=== PATIENT | male | born 1990 | race Caucasian/White ===

== ENCOUNTER 2017-05-09 11:02 | Inpatient (IN) ==
[2017-05-09] MEDS ORDERED: VANCOMYCIN 1 GM/NS 1 GM/250 ML IVPB IV ONE (11:32)
[2017-05-09] MEDS ORDERED: ZOSYN 3.375 GM in NS 50 ML IV ONE (11:33)
[2017-05-09] MEDS ORDERED: TORADOL IV ONE (11:34)
[2017-05-09] MEDS ORDERED: OFIRMEV 1000 MG/ISOTONIC SOLN 1,000 MG/100 ML BOTTLE IV ONE (11:36)
[2017-05-09 11:49] LABS: MANUAL DIFF NEEDED? NO
[2017-05-09 12:04] LABS: BASO% 0.1 % (0.0-0.8); EOS# 0.01 X1000 (0.0-0.7); EOS% 0.1 % (0.0-10.0); HEMATOCRIT 42.6 % (42.0-52.0); HEMOGLOBIN 14.8 g/dL (14.0-18.0); IMM GRAN# 0.02 X1000 (0.0-0.04); IMM GRAN% 0.2 % (0.0-0.5); LYMPH% 11.3 % (20.5-51.1); MCH 27.8 PG (27-31); MCHC 34.7 g/dL (33-37); MCV 80.1 FL (81-99); MONO# 1.35 X1000 (0.11-0.59); MONO% 10.1 % (1.7-9.3); MPV 10.7 FL (7.4-10.4); NEUT% 78.2 % (42.2-75.2); PLT 312 X1000 (130-400); RBC 5.32 XMIL (4.7-6.1)
[2017-05-09 12:18] LABS: AGAP 16; ALBUMIN 4.7 g/dL (3.5-5.0); ALKALINE PHOSPHATASE 122 U/L (32-122); BUN 17 mg/dL (8-22); CALCIUM 10.2 mg/dL (8.8-10.2); CHLORIDE 92 mmol/L (98-107); COSMO 270; GOT 46 U/L (10-34); GPT 129 U/L (10-44); SODIUM 134 mmol/L (136-145); TCO2 27 mmol/L (25-35)
--- NOTE | 2017-05-09 12:53 | Diag Imaging Result Doc PS360 ---
CT THORAX/NECK - 05/09/2017 INDICATION: chest/neck abscess TECHNIQUE: A CT dose reduction protocol was used. COMPARISON: None FINDINGS: NECK: There is severe soft tissue enlargement of the left sternomastoid muscle extending into the pectoralis major muscle inferiorly. There is also loss of the normal fat planes surrounding these muscles. There is nonspecific edema in the supraclavicular fossa on the left. No significant retrosternal collections. No mass or adenopathy in the neck. The great vessels of the neck are patent. The sinuses mastoids and middle ears are clear. Bony structures are intact and normally mineralized. CHEST: There is significant soft tissue enlargement of the inferior sternebrae mastoid on the left as well as the pectoralis major muscle. This in turn leads to widespread subcutaneous edema surrounding this affected area which crosses the midline somewhat but mainly stays on the left. No adenopathy. No mediastinal mass or fluid collection. There is splenomegaly. The spleen measures 12.5 x 6.6 cm. Otherwise upper abdominal images are unremarkable. The lungs and airways are clear. Bony structures are intact. IMPRESSION: 1. Extensive inflammatory process is mostly superficial, involving the inferior clinically to mastoid muscle on the left and the pectoralis major muscle with overlying cellulitis. Compatible with cellulitis and myositis. No drainable fluid collections. No soft tissue gas to definitely suggest necrotizing fasciitis. 2. Borderline splenomegaly. Electronically signed by Sancho Palacios 05/09/2017 12:51 PM
[2017-05-09] MEDS ORDERED: BENADRYL ONE (13:05)
[2017-05-09] MEDS ORDERED: DECADRON ONE (13:05)
[2017-05-09] MEDS ORDERED: BENADRYL IV ONE (13:10)
[2017-05-09] MEDS ORDERED: DECADRON IV ONE (13:10)
--- NOTE | 2017-05-09 13:23 | PROVIDER DOCUMENTATION ---
This chart was entered by Laurel Burns Scribe, acting as scribe for Michael Amaya MD. HPI-General Adult - General Chief Complaint: Abscess Stated Complaint: POSS BUG BITE Time Seen by Provider: 05/09/17 11:25 Source: patient Allergies/Adverse Reactions: Patient Allergies Allergy/AdvReac Type Severity Reaction Status Date / Time Sulfa (Sulfonamide Allergy ITCHING Verified 05/13/16 17:16 Antibiotics) tramadol Allergy HIVES Verified 05/13/16 17:16 Home Medications: Home Medication List Medication Instructions Recorded Confirmed Last Taken Type NK [No Home Medications] 05/09/17 05/09/17 Unknown History - History of Present Illness -Gen Adult Nature of Presenting Problems: PT is a 26 y/o M that presents to ED with cc of pain near his L clavicle bone x6 days and redness/swelling for 28 hours. The pt is uncooperative at first with allowing the exam due to tenderness. PT states he has been clean from drug use for months. Location of Pain/Injury: reports: other (L clavicle region) Pain Radiation: reports: no radiation Quality of Pain: reports: sharp Onset/Duration: reports: abrupt, other (pain x6 days swelling x28 hours) Timing: reports: still present Context/Activities at Onset: reports: none Modifying Factors: improves with: nothing Associated Symptoms: reports: other (swelling and tenderness to L clavicle region). denies: diarrhea, fever/chills, nausea, vomiting Similar Symptoms Previously?: No Recently seen or treated by another doctor?: No Review of Systems - Adult - REVIEW OF SYSTEMS - ADULT Constitutional: denies: chills, fever Eyes: reports: no symptoms reported Ears, Nose, Mouth & Throat: reports: no symptoms reported Cardiovascular: reports: no symptoms reported Respiratory: reports: no symptoms reported Gastrointestinal: reports: no symptoms reported Genitourinary: reports: no symptoms reported Musculoskeletal: reports: other (Pain to L clavicle region) Integumentary: reports: other (swelling and redness to L clavicle) Neurological: reports: no symptoms reported Psychiatric: reports: anxiety Endocrine: reports: no symptoms reported Hematologic/Lymphatic: reports: no symptoms reported Allergic/Immunologic: reports: no symptoms reported All Other Systems: Reviewed and Negative Past History - Adult - PAST MEDICAL HISTORY-ADULT Review of Records: reports: Old Records Reviewed, Nursing Assessment Review, Medications Reviewed Cardiovascular: reports: denies history Respiratory: reports: denies history Gastrointestinal: reports: denies history Musculoskeletal: reports: denies history Neurological: reports: denies history Psychiatric: reports: denies history - PRIOR SURGERIES/PROCEDURES Surgical/Procedure History: reports: none - IMMUNIZATION STATUS Childhood Immunizations: See Nurse Assessment Flu Vaccine: See Nurse Assessment - FAMILY HISTORY Family History: reviewed, not pertinent - SOCIAL HISTORY Substance Use: none presently/history of abuse (PT states he has hx of abuse with meth, cocaine and other drugs, but states he has been clean for months.) Physical Exam-General - PHYSICAL EXAM-ADULT Initial Vital Signs Reviewed: Yes - CONSTITUTIONAL General Appearance: alert, severe distress, thin, anxious, combative (PT would not allow the examination at first due to extreme pain and tenderness. He shouted profanity and told them he didn't need to be touched to get an antibiotic. Pt allowed the exam after being told he could not be given anything until exam was complete.) - HEAD, EARS, NOSE, MOUTH & THROAT HENMT: normocephalic/atraumatic, moist mucous membranes - NECK Neck: non-tender, full range of motion - RESPIRATORY Respiratory: chest non-tender, lungs clear, normal breath sounds - CARDIOVASCULAR Cardiovascular: normal peripheral pulses, no edema, tachycardia (112) - GASTROINTESTINAL (ABDOMEN) Abdominal Exam: normal bowel sounds, non tender, soft - LYMPHATIC Lymphatic: no adenopathy - MUSCULOSKELETAL Extremity: normal range of motion, non-tender - SKIN Integumentary: erythema (L clavicle near sternum), swelling (L clavicle near sternum), tenderness (severe tenderness L clavicle region near sternum), warm - NEUROLOGIC Neurologic: corporate associate attorney II-XII nml as tested, grossly normal - PSYCHIATRIC Psych/Mental Status: oriented x 3, anxious Progress - PLAN OF CARE/RESULTS Progress/Plan/Lab Results: Vital Signs - 8 hr 05/09/17 11:06 Temperature 98.3 F Pulse Rate 112 H Respiratory Rate 20 Blood Pressure 122/90 O2 Sat by Pulse Oximetry 98 Orders Category Date Time Status CTA [CT ANGIOGRAM/HEAD AND NECK] [CT] Stat Exams 05/09/17 11:35 Ordered CBC WITH DIFF [HEME] Stat Lab 05/09/17 11:35 Ordered COMPREHENSIVE METABOLIC PANEL [CHEM] Stat Lab 05/09/17 11:35 Ordered Ketorolac [Toradol] Med 05/09/17 11:34 Discontinued 30 mg IV NOW ONE Piperacillin/Tazobactam [Zosyn] 3.375 gm Med 05/09/17 11:33 Active 0.9% Sodium Chloride Inj [Ns] 50 ml IV NOW Vancomycin 1 gm/Ns Med 05/09/17 11:32 Active 1 gm in 250 ml IV NOW Result Diagrams: 05/09/17 11:30 05/09/17 11:30 - CT/MRI 1 CT Study: Neck, Thorax Impression: Abnormal (extensive inflammatory process is mostly superficial, involving the inferior clinically to mastoid muscle on the left and the pectoralis major muscle with overlying cellulitis. Compatible with cellulitis and myositis. No DRAINABLE FLUID COLLECTIONS. No solft tissue gas to definitely suggest necrotizing fascitis. borderline spenomegaly) Departure - Departure Date of Disposition Decision: 05/09/17 Time of Disposition Decision: 13:21 DIAGNOSIS: Cellulitis of neck Disposition: ADMITTED INPATIENT 09 Certified Medical Emergency: Emergent Condition: Stable Referrals and Follow-Ups: None,PCP [Primary Care Provider] - - Critical Care Note This patient required my direct & personal management of CC.: No Attestation - Physician/ ADOLFO Attestation The physician spent face to face time with patient:: Yes Advanced Practice Provider documentation review:: Supervising physician onsite and consulted in the evaluation and care of this patient. The physician did have a face to face encounter with the patient. This chart was documented by the indicated scribe, (Laurel Burns Scribe) and accurately reflects the services I performed and decisions made by , Michael Amaya MD, as attested by the provider's signature.
[2017-05-09] MEDS ORDERED: VANCOMYCIN IV PER PHARMACY MISC SCH ×2 (15:07→15:15)
[2017-05-09] MEDS ORDERED: TYLENOL PO PRN (15:07)
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
[2017-05-09] MEDS ORDERED: VANCOMYCIN 2,000 MG in NS 500 ML IV ONE (16:30)
[2017-05-09] MEDS: AZACTAM 1 GM in NS 50 ML IV SCH ×2 (16:56→23:09)
[2017-05-09] MEDS: TORADOL IV SCH ×2 (16:56→20:14)
[2017-05-09] MEDS ORDERED: ZOSYN 3.375 GM in NS 50 ML IV SCH (18:00)
[2017-05-09] MEDS: NORCO-5 PO PRN (20:14)
[2017-05-09] MEDS: NICODERM PATCH TD PRN (20:14)
[2017-05-09 22:24] LABS: UR AMPHETAMINES QUAL PRESUMPTIVE POSITIVE (NONE DETECT); UR BARBITUATES QUAL NONE DETECTED (NONE DETECT); UR BENZODIAZEPIN QUAL PRESUMPTIVE POSITIVE (NONE DETECT); UR COCAINE QUAL NONE DETECTED (NONE DETECT); UR MDMA QUAL PRESUMPTIVE POSITIVE (NONE DETECT); UR METHADONE QUAL NONE DETECTED (NONE DETECT); UR METHAMPHETAMINE QUAL PRESUMPTIVE POSITIVE (NONE DETECT)
[2017-05-09 22:25] LABS: UR CANNABINOIDS QUAL PRESUMPTIVE POSITIVE (NONE DETECT); UR OPIATES QUAL NONE DETECTED (NONE DETECT); UR OXYCODONE QUAL PRESUMPTIVE POSITIVE (NONE DETECT); UR PCP QUAL NONE DETECTED (NONE DETECT); UR TCA QUAL PRESUMPTIVE POSITIVE (NONE DETECT)
[2017-05-10] MEDS: NORCO-5 PO PRN (01:50)
[2017-05-10] MEDS: TORADOL IV SCH ×4 (03:05→20:48)
[2017-05-10] MEDS: VANCOMYCIN 1,600 MG in NS 250 ML IV SCH ×2 (04:04→16:55)
[2017-05-10 07:09] LABS: AGAP 10; ALBUMIN 3.5 g/dL (3.5-5.0); ALKALINE PHOSPHATASE 90 U/L (32-122); BUN 16 mg/dL (8-22); CALCIUM 8.7 mg/dL (8.8-10.2); CHLORIDE 99 mmol/L (98-107); COSMO 272; GOT 17 U/L (10-34); GPT 66 U/L (10-44); POTASSIUM 4.2 mmol/L (3.5-5.1); SODIUM 135 mmol/L (136-145); TCO2 26 mmol/L (25-35); TOTAL PROTEIN 6.6 g/dL (6.3-8.3)
[2017-05-10 07:44] LABS: HEMATOCRIT 33.4 % (42.0-52.0); HEMOGLOBIN 11.4 g/dL (14.0-18.0); MCH 27.7 PG (27-31); MCHC 34.1 g/dL (33-37); MCV 81.1 FL (81-99); MPV 10.5 FL (7.4-10.4); RBC 4.12 XMIL (4.7-6.1)
[2017-05-10] MEDS: AZACTAM 1 GM in NS 50 ML IV SCH ×2 (08:10→15:09)
--- NOTE | 2017-05-10 09:18 | PROGRESS NOTE ---
DATE: 05/10/2017 SUBJECTIVE: The patient currently is in no distress. States that he is feeling better. Still having some pain on his left anterior shoulder area but notes that the mass and swelling have decreased some. He is now having some pain down into his chest wall, around the nipple area, but states that this is not nearly as severe as the other. OBJECTIVE: Vital Signs: Temperature 97, pulse 60, respiratory rate 20, BP 117/75, sat 9% on room air. General: Patient is awake, alert, currently in no respiratory distress. Pleasant to talk with this morning. Neck: Supple. Cardiovascular: Regular rate. Chest: Clear. Abdomen: Soft. Extremities: Moves all extremities. Neurologic: No changes. LABS: Reviewed. CBC with a WBC of 13. CMP essentially normal. Urine drug screen abnormal for oxycodone, tricyclics, amphetamines, methamphetamine, MDMA, benzos, and cannabinoids. ASSESSMENT: 1. Abnormal drug screen. Initially, the patient states that he did smoke marijuana. Notes that he has been using oxycodone and benzo's, but denies any use of cocaine. 2. Cellulitis left neck with a mass. Uncertain etiology of this. We will continue antibiotics. Certainly appears to be improving tremendously from yesterday morning. 3. Elevated liver function tests. Certainly patient's chronic drug use could be the cause of this. In fact, this has actually improved since being in the hospital. 4. Mild leukocytosis. PLAN: We will continue patient as noted on aztreonam and vancomycin. Continue to follow. If his mass does not continue to shrink, will ask surgery for intervention options. cc: Kye Delcid MD
[2017-05-11] MEDS: AZACTAM 1 GM in NS 50 ML IV SCH ×3 (00:04→15:29)
--- NOTE | 2017-05-11 03:26 | ECHO REPORT ---
ORDER DATE: 05/10/2017 MEASUREMENTS: Left ventricular end-diastolic diameter 4.4, end-systolic diameter 3.2. Posterior wall thickness 0.7. Septal thickness 0.7. Left atrium 3.8. Aortic root 3.1. SUMMARY: 1. Fair quality study. 2. Aortic, mitral, tricuspid, and pulmonic valves are without structural abnormality. There is trace tricuspid regurgitation and trace mitral regurgitation. The estimated systolic PA pressure by Doppler is 30-35 mmHg. The aortic root is normal in size. 3. Normal left ventricular dimensions demonstrated. Estimated left ventricular ejection fraction appears to be at least 60%. No regional wall motion abnormalities evident. Doppler suggests normal left ventricular diastolic function. Left atrium, right atrium, right ventricle are normal in size, with normal right ventricular systolic function. 4. No pericardial effusion. 5. Appearance of inferior vena cava suggests normal central venous pressure, with normal right ventricular systolic function. Interatrial septum appears somewhat hypermobile, and is borderline for atrial septal aneurysm. Intravenous agitated saline contrast study reveals no evidence of [id number] intracardiac shunting. There is no evidence of intracardiac shunting on color Doppler. 6. No pericardial effusion. 7. Appearance of the inferior vena cava suggests normal central venous pressure. CONCLUSIONS: 1. No significant valvular abnormality evident. 2. Normal left ventricular function, without wall motion abnormality evident. 3. Somewhat hypermobile interatrial septum, borderline for atrial septal aneurysm, with no evidence on color Doppler or intravenous agitated saline contrast study for intracardiac shunting. cc: MD Adry Hollis CRNP
[2017-05-11] MEDS: VANCOMYCIN 1,600 MG in NS 250 ML IV SCH ×2 (03:29→16:49)
[2017-05-11] MEDS: TORADOL IV SCH ×4 (03:29→20:46)
[2017-05-11] MEDS: NORCO-5 PO PRN (09:56)
[2017-05-11] MEDS: ZOFRAN IV PRN ×3 (09:56→20:46)
[2017-05-11 10:00] LABS: HEMATOCRIT 38.3 % (42.0-52.0); HEMOGLOBIN 12.9 g/dL (14.0-18.0); MCH 27.9 PG (27-31); MCHC 33.7 g/dL (33-37); MCV 82.7 FL (81-99); MPV 10.6 FL (7.4-10.4); RBC 4.63 XMIL (4.7-6.1)
[2017-05-11 10:16] LABS: AGAP 12; BUN 13 mg/dL (8-22); CHLORIDE 101 mmol/L (98-107); COSMO 275; POTASSIUM 3.2 mmol/L (3.5-5.1); SODIUM 138 mmol/L (136-145); TCO2 25 mmol/L (25-35)
[2017-05-11] MEDS ORDERED: KLOR-CON PO ONE ×2 (11:06→13:51)
--- NOTE | 2017-05-11 16:26 | PROGRESS NOTE ---
DATE: 05/11/2017 SUBJECTIVE: The patient is sitting up in bed watching TV. He still complains of pain at his mid clavicle mass. He does state that the pain radiates down through his chest into the chest wall when this mass is pressed down or when he moves his arm. He states that it is better than yesterday. OBJECTIVE: Vital Signs: Blood pressure is 132/62, heart rate of 64, respirations 19, temperature of 97.8 degrees oral, and room air saturations 100%. Cardiovascular: Regular rate and rhythm. S1 and S2 appreciated. Pulmonary: Breath sounds are clear with no increased work of breathing noted. Gastrointestinal: Abdomen is soft, nontender, nondistended with bowel sounds in all 4 quadrants. Extremities: He moves all extremities well. Left arm this is limited due to pain. No clubbing, cyanosis or edema. Calves are nontender. Neurologic: He is alert and oriented x3. LABS: WBC is 8.8, hemoglobin of 12.9, hematocrit 38.3, and platelets of 225,000. Sodium is 138, potassium 3.2, BUN 13, creatinine 0.6 with a glucose of 82. ASSESSMENT: 1. Abnormal drug screen. Aware. 2. Cellulitis left neck with a mass. This has improved tremendously from yesterday. Erythema has resolved. 3. Elevated liver function tests. These are resolving. We will continue to follow. 4. Leukocytosis resolved. 5. We will continue aztreonam and vancomycin, this is day 2. Dictated by FLAVIO Herman for Kye Delcid MD cc: FLAVIO Herman MD
[2017-05-12] MEDS: AZACTAM 1 GM in NS 50 ML IV SCH ×4 (00:23→23:50)
[2017-05-12] MEDS: ZOFRAN IV PRN ×5 (00:23→23:50)
[2017-05-12] MEDS: TORADOL IV SCH ×4 (03:15→20:25)
[2017-05-12] MEDS: VANCOMYCIN 1,600 MG in NS 250 ML IV SCH ×2 (04:35→17:13)
[2017-05-12 06:09] LABS: HEMOGLOBIN 11.6 g/dL (14.0-18.0); MCH 27.1 PG (27-31); MCHC 33.1 g/dL (33-37); MCV 81.8 FL (81-99); MPV 10.1 FL (7.4-10.4); RBC 4.28 XMIL (4.7-6.1)
[2017-05-12 06:26] LABS: AGAP 9; BUN 9 mg/dL (8-22); CALCIUM 8.8 mg/dL (8.8-10.2); CHLORIDE 102 mmol/L (98-107); COSMO 270; POTASSIUM 3.8 mmol/L (3.5-5.1); SODIUM 136 mmol/L (136-145); TCO2 25 mmol/L (25-35)
[2017-05-12] MEDS: NICODERM PATCH TD PRN (11:06)
--- NOTE | 2017-05-12 16:02 | PROGRESS NOTE ---
DATE: 05/12/2017 SUBJECTIVE: Patient without any new complaints. The patient states that the area on his left chest wall has improved. His mom, however, states that she thinks it is worse. Patient states the pain is better. Mom states the pain is worse. The patient denies any GI or issues. PHYSICAL: vital signs: Temperature 98.2, pulse 131/84, respiratory 20. General: Patient lying in bed. He is awake, alert. He is in no respiratory distress. HEENT: Normocephalic. Neck: Supple. No JVD. CARDIOVASCULAR: Regular rate. Chest: Clear. Abdomen: Soft. Extremities: Moves all extremities. Neurologic: No focal changes. Skin: He is noted to have a small mass- like area that is tender over the left clavicle. This is definitely smaller than it was on admission and does appear to be slightly smaller than it was yesterday. ASSESSMENT: 1. Methicillin-resistant Staphylococcus aureus bacteremia. 2. Cellulitis with mass on left anterior neck over the left clavicle. Presumed secondary to methicillin-resistant Staph. 3. Chronic medical noncompliance. 4. Chronic drug abuse. PLAN: We will continue patient on vancomycin. We will continue to follow. He is afebrile. Blood culture is growing Staph. We will continue to follow today. Hopefully home in the next day or two. cc: Kye Delcid MD
[2017-05-12] MEDS: NORCO-5 PO PRN (23:50)
[2017-05-13] MEDS: TORADOL IV SCH ×4 (02:54→20:18)
[2017-05-13] MEDS: VANCOMYCIN 1,600 MG in NS 250 ML IV SCH ×2 (04:32→17:34)
[2017-05-13] MEDS: ZOFRAN IV PRN ×3 (04:32→16:48)
[2017-05-13] MEDS: NORCO-5 PO PRN (06:08)
[2017-05-13] MEDS: AZACTAM 1 GM in NS 50 ML IV SCH ×2 (08:56→16:42)
[2017-05-13] MEDS: NORCO-10 PO PRN ×2 (11:02→20:18)
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
[2017-05-13] MEDS: NICODERM PATCH TD PRN (15:35)
[2017-05-14] MEDS: ZOFRAN IV PRN ×3 (00:10→22:13)
[2017-05-14] MEDS: NORCO-10 PO PRN ×4 (00:10→22:12)
[2017-05-14] MEDS: AZACTAM 1 GM in NS 50 ML IV SCH ×2 (00:11→08:25)
[2017-05-14] MEDS: TORADOL IV SCH ×3 (04:09→15:13)
[2017-05-14] MEDS: VANCOMYCIN 1,600 MG in NS 250 ML IV SCH (04:09)
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
[2017-05-14] MEDS: ZOSYN 3.375 GM in NS 50 ML IV SCH ×2 (12:09→22:12)
--- NOTE | 2017-05-14 13:24 | Diag Imaging Result Doc PS360 ---
CT NECK W/CONTRAST - 05/14/2017 INDICATION: mass/swelling TECHNIQUE: A CT dose reduction protocol was used. COMPARISON: 05/09/2017 FINDINGS: There is slight decrease in the muscular enlargement involving mainly the inferior portion of the left sternocleidomastoid muscle. A little bit of the pectoralis muscle is still involved but this is better. No drainable fluid collections. Major salivary glands remain normal. Mucosal surfaces remain normal. The great vessels of the neck remain patent. IMPRESSION: Improvement in the myositis and cellulitis over the left side of the neck and left upper chest. No new abnormality. No complication. Electronically signed by Sancho Palacios 05/14/2017 1:21 PM
--- NOTE | 2017-05-14 14:00 | PROGRESS NOTE ---
DATE: 05/14/2017 SUBJECTIVE: Patient states he is still hurting in the left clavicular, left anterior neck area. Does not think it is any bigger than it was yesterday. OBJECTIVE: Vital Signs: Reviewed. Temperature 98 degrees, pulse 71, respiratory rate 18, BP 135/48. General: Patient is awake, alert, currently in no distress. He is lying flat in the bed. Speech is regular. Memory is intact. Neck: Supple. CV: Regular rate. Chest: Clear. Abdomen: Soft. Extremities: Moves all extremities. Neurologic: No changes. Skin: Noted to have a golf ball-sized, nonindurated area left clavicular. Head is very tender to touch. Slightly erythematous. Slightly warm to the touch. ASSESSMENT: Cellulitis with abscess left clavicular head. He had a recent blood culture that was positive for methicillin-resistant Staphylococcus aureus. His repeat blood cultures have been negative. We will continue antibiotics. We will get a CT scan today. Patient most likely will have to transfer to [facility] to have this done as the scanner is down currently at [place]. We will follow. Further orders as needed. cc: Kye Delcid MD
[2017-05-14] MEDS: NICODERM PATCH TD PRN (15:10)
[2017-05-14] MEDS: VANCOMYCIN 1,400 MG in NS 250 ML IV SCH (16:18)
[2017-05-14] MEDS ORDERED: NS 50 ML ONE (22:00)
[2017-05-15] MEDS: ZOSYN 3.375 GM in NS 50 ML IV SCH ×2 (02:28→08:16)
[2017-05-15] MEDS: NORCO-10 PO PRN ×5 (02:28→21:23)
[2017-05-15] MEDS: ZOFRAN IV PRN (02:28)
[2017-05-15] MEDS: VANCOMYCIN 1,400 MG in NS 250 ML IV SCH (04:56)
[2017-05-15 06:00] LABS: HEMATOCRIT 35.1 % (42.0-52.0); HEMOGLOBIN 11.7 g/dL (14.0-18.0); MCH 27.2 PG (27-31); MCHC 33.3 g/dL (33-37); MCV 81.6 FL (81-99); MPV 9.7 FL (7.4-10.4); RBC 4.3 XMIL (4.7-6.1)
--- NOTE | 2017-05-15 08:29 | PROGRESS NOTE ---
DATE: 05/15/2017 SUBJECTIVE: Patient notes that the pain is a little bit better this morning. Still hurts. Still requiring pain medication. Notes the swelling is a little bit better in the left anterior neck as well. Denies any GI or issues. PHYSICAL EXAMINATION: Vital Signs: Temperature 98, pulse 85, respiratory rate 20, BP 113/62, saturation 100% on room air. General: Patient is awake, alert, and oriented. Currently in no respiratory distress. Neck: Supple. There is no JVD. CV: Regular rate and rhythm. Chest: Clear and nonlabored. No wheezing. Abdomen: Soft, nondistended, nontender. Extremities: Moves all extremities. Neurologic: No changes. He is awake, alert, oriented. Skin: He is noted to have a hardened area of the left anterior neck over the clavicular head. Appears to be slightly smaller than yesterday. Still hard. Still warm to the touch. Still very tender. ASSESSMENT: 1. Cellulitis of the left neck with mass effect. 2. Leukocytosis, resolved. 3. Elevated liver function tests. PLAN: We will continue patient on antibiotics. He appears to be slightly better after changing to Zosyn and vancomycin yesterday. We will continue these today. Further orders as needed. He did have a recent MRSA positive blood culture. However, repeat cultures were negative. cc: Kye Delcid MD
[2017-05-15] MEDS ORDERED: AUGMENTIN PO SCH (21:00)
[2017-05-16] MEDS ORDERED: VANCOMYCIN IV PER PHARMACY MISC SCH (08:30)
[2017-05-16] MEDS: NORCO-10 PO PRN ×3 (08:42→16:48)
[2017-05-16] MEDS ORDERED: CLEOCIN PO SCH (09:00)
--- NOTE | 2017-05-16 09:24 | PROGRESS NOTE ---
DATE: 05/16/2017 SUBJECTIVE: Patient resting quietly in bed. States the swelling in his neck is a little better. Pain is improving. Still mildly tender to touch. OBJECTIVE: Vital Signs: Temperature 98.5 degrees, pulse 77, respirations 17, blood pressure 90/54, saturating 98% on room air. General: This is a 26-year-old male, who is lying in the bed and answers questions appropriately. HEENT: Normocephalic and atraumatic. Pupils are equal, round, and reactive to light. Extraocular movements are intact. The oropharynx and nares are clear. Neck: Supple with no JVD. Lungs: Clear to auscultation bilaterally with equal lung expansion and chest wall movement. Heart: Regular rate and rhythm. No murmurs, rubs, or gallops. Extremities: He moves all extremities well. Neurological: Cranial nerves 2-12 appear grossly intact. Skin: He still noted to have a hardened area to the left anterior neck over the clavicular head, remains hard, still warm to touch, and still very tender. No new labs today. ASSESSMENT AND PLAN: 1. Cellulitis of the left neck with mass effect. Patient lost his peripheral IV yesterday, and we discussed this case with infectious disease, Dr. Urbina today, who feels that due to the fact that he has a positive methicillin-resistant Staphylococcus aureus blood culture, he will need a complete antibiotic treatment of 2 weeks. So, we will place the PICC line today, discontinue the p.o. antibiotics that were started yesterday, place him back on vancomycin per pharmacy protocol for at least another week, as he has already had 5-6 days of antibiotics IV to date. Explained all this to the patient, who verbalized understanding. 2. Methicillin-resistant Staphylococcus aureus bacteremia. Again, will continue the IV antibiotics for a total of 2 weeks after placement of PICC line today. Dictated by FLAVIO Aguilar for Benja Alva MD cc: FLAVIO Aguilar MD
[2017-05-16 11:27] LABS: INR 0.99 (0.86-1.15); PROTIME 13.9 Seconds (12.1-15.5)
[2017-05-16] MEDS: VANCOMYCIN 1,400 MG in NS 250 ML IV SCH (12:26)
[2017-05-16] MEDS: NICODERM PATCH TD PRN (12:39)
[2017-05-17] MEDS: NORCO-10 PO PRN ×3 (00:02→13:15)
[2017-05-17] MEDS: VANCOMYCIN 1,400 MG in NS 250 ML IV SCH ×2 (00:02→13:16)
[2017-05-17] MEDS: ZOFRAN IV PRN ×2 (00:06→13:43)
--- NOTE | 2017-05-17 10:46 | PROGRESS NOTE ---
DATE: 05/17/2017 SUBJECTIVE: This patient is resting comfortably in bed. The swelling of his neck is a little bit better, but he is still having pain mostly when he moves or touches the area. There is some redness and inflammation. OBJECTIVE: Vital Signs: Temperature 97.7 degrees, pulse 78, respiratory rate 18, blood pressure 115/57, oxygen saturation 100% on room air. HEENT: Head normocephalic. No trauma. PERRLA. Neck: Supple. No JVD. He has a swelling at the level of the left clavicular head painful to palpation with redness. Chest: Clear to auscultation. No wheezing. No rales. Abdomen: Soft, nontender, nondistended. No hepatosplenomegaly. Extremities: No edema. No clubbing. No cyanosis. Neurological examination: The patient is alert and oriented x3. No focal deficits. LABORATORY: No lab work done today. ASSESSMENT AND PLAN: 1. Cellulitis at the level of the left neck, mostly at the level of the left clavicular head. Continue with intravenous antibiotics. We need to complete 2 weeks of vancomycin to cover the methicillin-resistant Staphylococcus aureus. He has an external jugular line in place; if this fails, we need to probably get a PICC line, but for now we will continue like this. 2. Methicillin-resistant Staphylococcus aureus bacteremia as above. 3. Drug abuse. This patient has been highly advised against drug abuse. I will continue with daily cessation education. As per the patient, he stopped doing drugs a couple weeks ago, and he was just smoking marijuana. He told me that he stopped doing intravenous drugs because he does not have any veins left. cc: Benja Alva MD
[2017-05-17] MEDS: NICODERM PATCH TD PRN (13:15)
[2017-05-17] MEDS ORDERED: MOTRIN PO PRN (13:40)
[2017-05-18] MEDS: VANCOMYCIN 1,400 MG in NS 250 ML IV SCH ×2 (00:51→16:29)
[2017-05-18] MEDS: ZOFRAN IV PRN ×4 (00:51→20:03)
[2017-05-18 06:30] LABS: MANUAL DIFF NEEDED? NO
[2017-05-18 06:37] LABS: BASO% 0.3 % (0.0-0.8); EOS# 0.13 X1000 (0.0-0.7); EOS% 1.9 % (0.0-10.0); HEMOGLOBIN 12.8 g/dL (14.0-18.0); IMM GRAN# 0.06 X1000 (0.0-0.04); IMM GRAN% 0.9 % (0.0-0.5); LYMPH# 1.78 X1000 (1.2-3.4); LYMPH% 26.5 % (20.5-51.1); MCH 27.6 PG (27-31); MCHC 33.7 g/dL (33-37); MCV 82.1 FL (81-99); MONO# 0.74 X1000 (0.11-0.59); MPV 9.5 FL (7.4-10.4); NEUT% 59.4 % (42.2-75.2); PLT 339 X1000 (130-400); RBC 4.63 XMIL (4.7-6.1)
[2017-05-18 07:14] LABS: AGAP 9; ALBUMIN 3.6 g/dL (3.5-5.0); ALKALINE PHOSPHATASE 96 U/L (32-122); BUN 13 mg/dL (8-22); CALCIUM 9.2 mg/dL (8.8-10.2); CHLORIDE 99 mmol/L (98-107); COSMO 271; GOT 17 U/L (10-34); GPT 29 U/L (10-44); POTASSIUM 4.1 mmol/L (3.5-5.1); SODIUM 136 mmol/L (136-145); TCO2 28 mmol/L (25-35); TOTAL BILIRUBIN < 0.15 mg/dL (0.20-1.00); TOTAL PROTEIN 7.6 g/dL (6.3-8.3)
[2017-05-18] MEDS ORDERED: NORCO-5 PO PRN (08:55)
--- NOTE | 2017-05-18 09:54 | PROGRESS NOTE ---
DATE: 05/18/2017 SUBJECTIVE: The patient is resting quietly. States he has had some mild nausea and some mild pain to his left clavicular chest wall. OBJECTIVE: Vital Signs: Temperature 97.8 degrees, pulse 70, respirations 16, blood pressure 95/52. General: This is a 26-year-old male who is lying in the bed and answers questions appropriately. HEENT: He is normocephalic and atraumatic. Pupils are equal, round, reactive to light. Extraocular movements are intact. The oropharynx and nares are clear. Neck: Supple. He is noted to have some minimal swelling now at the level of the left clavicular head. surface grinder tender to touch with very mild redness noted. Lungs: Clear to auscultation bilaterally with equal lung expansion and chest wall movement. Heart: With regular rate and rhythm. No murmurs, rubs, or gallops. Abdomen: Soft, nontender, nondistended. Bowel sounds are present x4 quadrants. Extremities: No clubbing, cyanosis, or edema. Neurological: The cranial nerves 2-12 appear grossly intact. LABORATORY DATA: Showed a white blood cell count of 6.72, hemoglobin 12.8, hematocrit 38. Platelets 339,000. Sodium of 136, potassium 4.8, chloride 99, CO2 28, BUN of 13 , creatinine 0.7, glucose 83. ASSESSMENT: 1. Cellulitis at the level of the left neck, at the left clavicular head. He is to continue with his IV antibiotics, total of 2 weeks, to cover his methicillin resistant staph aureus. He has an external jugular line to the right at this time. We will continue with that. 2. Methicillin resistant staph aureus bacteremia, as noted above. 3. History of drug abuse. He will remain in the hospital for the remainder of his IV antibiotic therapy, as he has had a history of IV drug use and he verbalizes understanding. States that he quit using intravenous drugs because he did not have any veins. Patient seen and examined by me face to face, all the lab work, images, vitals signs, were reviewed, we talk to Dr Urbina from infectious disease department, he suggested to keep this patient with Vanco for at least two weeks and then start PO treatment, his left neck, and clavicular head still inflamed and painful, he can not go home with an IV because he has a history of drug abuse, I agree with all the assessment and plan, Benja Haro MD Dictated by FLAVIO Aguilar for Bejna Alva MD cc: FLAVIO Aguilar MD [facility]
[2017-05-18] MEDS ORDERED: VANCOMYCIN 1,400 MG in NS 250 ML IV SCH (14:00)
[2017-05-18] MEDS: NICODERM PATCH TD PRN (14:13)
[2017-05-19] MEDS: VANCOMYCIN 1,400 MG in NS 250 ML IV SCH ×2 (00:53→15:04)
[2017-05-19] MEDS: ZOFRAN IV PRN ×2 (01:02→15:04)
--- NOTE | 2017-05-19 13:10 | PROGRESS NOTE ---
DATE: 05/19/2017 SUBJECTIVE: Patient resting quietly. States that his neck feels better today and the area feels softer to him. OBJECTIVE: Vital Signs: Temperature 97.5 degrees, pulse 83, respirations 21, blood pressure 121/60, saturating 98% on room air. General: This is a 26-year-old male who is lying in the bed and answers questions appropriately. HEENT: Normocephalic and atraumatic. Pupils are equal, round, reactive to light. Extraocular movements are intact. Oropharynx and nares are clear. Neck: Supple. He is noted to have swelling at the level of the left clavicular head. Still mildly tender to touch. No redness noted today and the area feels softer and less hard than it has felt in the last couple of days. Lungs: Clear to auscultation bilaterally with equal lung expansion and chest wall movement. Heart: With regular rate and rhythm. No murmurs, rubs, or gallops. Abdomen: Soft, nontender, nondistended. Bowel sounds are present x4 quadrants. Extremities: There is no clubbing, cyanosis, or edema. Neurological: The cranial nerves 2-12 appear grossly intact. LABS: There are no new labs today. ASSESSMENT: 1. Cellulitis at the level of the left neck at the left clavicular head. He continues on his IV antibiotics for a total of 2 weeks to cover his methicillin-resistant Staph aureus. He continues with an external jugular line at this time. 2. Methicillin-resistant Staph aureus bacteremia. As noted above. Continue his IV antibiotics. 3. History of drug abuse. He remains in the hospital for remainder of his IV antibiotic therapy as he has a history of IV drug use and he verbalizes understanding of this. Dictated by FLAVIO Aguilar for Justin Quevedo MD cc: FLAVIO Aguilar MD I have seen and examined this patient. I have provided face to face evaluation. I have reviewed her lab works and imagine studies. I agree with the above plan. will continue with current antibiotics. RKQ MAKENZIE
[2017-05-20] MEDS: ZOFRAN IV PRN ×2 (00:31→13:28)
[2017-05-20] MEDS: VANCOMYCIN 1,400 MG in NS 250 ML IV SCH ×2 (00:31→13:28)
--- NOTE | 2017-05-20 11:53 | PROGRESS NOTE ---
DATE: 05/20/2017 SUBJECTIVE: Patient resting quietly in bed. OBJECTIVE: Vital Signs: Temperature 99.5 degrees, pulse 78, respirations 18, blood pressure 98/47, saturating 98% on room air. General: This is a 26-year-old, male who is lying in the bed, answers questions appropriately. HEENT: Normocephalic and atraumatic. Pupils are equal, round, reactive to light. Extraocular movements are intact. The oropharynx and nares are clear. Neck: Supple. He is noted to have minimal swelling now at the level of the left clavicular head. Still remains mildly tender to touch, but no redness noted today, and continues to feel less hard than the last few days. Lungs: Clear to auscultation bilaterally with equal lung expansion and chest wall movement. Heart: With regular rate and rhythm. No murmurs, rubs, or gallops. Abdomen: Soft, nontender, nondistended. Bowel sounds are present x4 quadrants. Extremities: No clubbing, cyanosis, or edema. Neurological: The cranial nerves 2-12 are grossly intact. LAB: There are no new labs today. ASSESSMENT: 1. Cellulitis at the level of the left neck at the left clavicular head. He continues his IV antibiotics for a completion of 2 weeks to cover his MRSA and he continues with an external jugular line at this time. The dressing is dry and intact. 2. Methicillin-resistant Staph aureus bacteremia. As noted, he continued his IV antibiotics. 3. History of drug abuse. IV drug abuse and history of that is stable at this time. This is FLAVIO Aguilar, dictating for Dr. Quevedo. Dictated by FLAVIO Aguilar for Justin Quevedo MD cc: FLAVIO Aguilar MD I have seen and examined this patient. I have provided face to face evaluation. I have reviewed her lab works and imagine studies. Patient with MRSA bacteremia and cellulitis to skin. Also IV drug abuser. Needs to complete 2 weeks of IV antibiotics and discharge on PO meds. I agree with the above plan. KHRIS BANEGAS
[2017-05-20] MEDS: NICODERM PATCH TD PRN (13:28)
[2017-05-21] MEDS: VANCOMYCIN 1,400 MG in NS 250 ML IV SCH ×2 (00:07→16:47)
[2017-05-21] MEDS: ZOFRAN IV PRN ×4 (00:07→16:47)
--- NOTE | 2017-05-21 17:08 | PROGRESS NOTE ---
DATE: 05/21/2017 SUBJECTIVE: Today Mr. Cook referred to be doing a lot better. Denies any medical complaints. Still has some tenderness over the left sternoclavicular joint. OBJECTIVE: Vital signs: Blood pressure is 144/64, pulse of 85, respirations 14, temperature is 98.7 degrees. General: Mr. Cook is a 76-year-old male. He is in bed, not seemingly distressed. HEENT: Mucosa is pink and moist. Anicteric. Acyanotic. Neck: Supple. Chest: Clear. Cardiovascular: Regular rate and rhythm. There are no murmurs, no rubs, no gallops. Abdomen: Soft, nontender. Extremities: No pedal edema. IMMUNOLOGY SPECIALIST: Patient is awake and alert and oriented x4. There is no focal neurological deficit. Musculoskeletal: There is some tenderness over the left sternoclavicular joint. It is mildly tender. It is less erythematous than yesterday. ASSESSMENT: 1. Methicillin sensitive Staphylococcus aureus bacteremia. Patient continues with vancomycin. He had a negative blood culture on the . That was when we would have to start counting the days of therapy and we have to count 2 weeks from the , so end of therapy will be , 05/25/2017, after which he can safely be discharged on oral antibiotics. 2. Cellulitis at the level of the left neck and left clavicle head. The entire cellulitis is completely resolved. Patient does have some minimal tenderness over the left clavicular head, and there is some minimal fluctuation and I wonder if he does have some form of a septic arthritis of the clavicular head. He is going to continue with the antibiotics, but we will get Orthopedics to probably review the joint before we discharge him just to make sure that he does not go with any septic arthritis. 3. History of drug abuse. Patient has been counseled. PLAN: So in general, I think Mr. Cook is stable. From the description of his initial insult, the cellulitis of the neck and the entire left side of the chest wall seems to have resolved. He does have some minimal discomfort at the 1st clavicular head, which I think he probably has a septic arthritis. We will get Orthopedics to review that. Patient end of therapy for the bacteremia will be 05/25/2017 after which he will be okay to be on oral antibiotics. cc: Justin Quevedo MD
[2017-05-21] MEDS ORDERED: XYLOCAINE-MPF 2% ONE (17:10)
[2017-05-22] MEDS: VANCOMYCIN 1,400 MG in NS 250 ML IV SCH ×2 (05:38→17:51)
[2017-05-22] MEDS: ZOFRAN IV PRN ×2 (05:38→18:00)
[2017-05-22] MEDS: NICODERM PATCH TD PRN (15:34)
--- NOTE | 2017-05-22 20:22 | PROGRESS NOTE ---
DATE: 05/22/2017 SUBJECTIVE: Patient without any new complaints. States he is having some arthritis in his right hand, but thinks this is secondary to the IV site. Otherwise, he states he is feeling fine. Denies any chest pain, palpitations. Denies any fevers or chills. Notes the swelling in his clavicle area has completely resolved. OBJECTIVE: Vital Signs: Reviewed. Patient afebrile. Temperature 98 degrees, pulse 94, respiratory rate 18, blood pressure 104/70. General: Patient is awake, alert, oriented. He is currently in no respiratory distress. Pleasant to talk with. Neck: Supple. CARDIOVASCULAR: Regular rate and rhythm. Chest: Clear. Nonlabored. Abdomen: Soft. Extremities: Moves all extremities. Neurologic: No focal neurological changes. Skin: Warm and dry. No rashes. ASSESSMENT: 1. Cellulitis with abscess formation left clavicular head. Has completely resolved. 2. Methicillin-resistant Staphylococcus aureus bacteremia secondary to cellulitis. Patient's last blood culture was negative. He has 2 more days left on his treatment course and will continue this. 3. After 05/25 dose, he can be discharged home safely with oral antibiotics. cc: Kye Delcid MD
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
[2017-05-23] MEDS: VANCOMYCIN 1,400 MG in NS 250 ML IV SCH ×2 (05:48→16:15)
[2017-05-23] MEDS: ZOFRAN IV PRN (05:54)
--- NOTE | 2017-05-23 18:52 | PROGRESS NOTE ---
DATE: 05/23/2017 SUBJECTIVE: Patient without any complaints today. He is extremely ready to go home. Denies any chest pain, palpitations. Denies any GI or issues. OBJECTIVE: Temperature 97.9, pulse 73, respiratory rate 16, BP 100/54. General: Patient awake and alert. He is currently in no respiratory distress. He is sitting up on the side of the bed eating breakfast. HEENT: Normocephalic, atraumatic. CARLOS MANUEL. Neck: Supple. CV: Regular rate and rhythm. No apparent murmurs. Chest: Clear and nonlabored. ASSESSMENT: 1. Methicillin-sensitive Staphylococcus aureus bacteremia. 2. Cellulitis of the left neck and left clavicular head secondary to the methicillin-sensitive Staphylococcus aureus. 3. History of drug abuse. PLAN: Patient will have 1 more day of IV antibiotics and then he can be discharged home on oral antibiotics. The patient acknowledges awareness and states that he is ready to go home. cc: Kye Delcid MD
[2017-05-24] MEDS: VANCOMYCIN 1,400 MG in NS 250 ML IV SCH ×2 (04:48→16:44)
[2017-05-24] MEDS: ZOFRAN IV PRN (04:48)
[2017-05-24 10:25] LABS: HEMATOCRIT 34.3 % (42.0-52.0); HEMOGLOBIN 11.6 g/dL (14.0-18.0); MCH 27.6 PG (27-31); MCHC 33.8 g/dL (33-37); MCV 81.5 FL (81-99); MPV 10.4 FL (7.4-10.4); RBC 4.21 XMIL (4.7-6.1)
[2017-05-24 10:48] LABS: AGAP 10; ALBUMIN 3.5 g/dL (3.5-5.0); ALKALINE PHOSPHATASE 103 U/L (32-122); BUN 11 mg/dL (8-22); CALCIUM 8.9 mg/dL (8.8-10.2); CHLORIDE 99 mmol/L (98-107); COSMO 272; GOT 18 U/L (10-34); GPT 31 U/L (10-44); POTASSIUM 3.9 mmol/L (3.5-5.1); SODIUM 136 mmol/L (136-145); TCO2 28 mmol/L (25-35); TOTAL BILIRUBIN < 0.15 mg/dL (0.20-1.00); TOTAL PROTEIN 7.1 g/dL (6.3-8.3)
[2017-05-24 17:43] VITALS: BP 139/66
--- NOTE | 2017-05-27 20:17 | DISCHARGE SUMMARY ---
ADMISSION DATE: 05/09/2017 DISCHARGE DATE: 05/24/2017 DISCHARGE DIAGNOSIS: 1. Methicillin-resistant Staph aureus bacteremia. His 1st set of blood cultures were positive and grew Staph aureus. Repeat blood cultures have been negative. He has received 14 days of IV antibiotics since his repeat cultures were negative. 2. Cellulitis left neck, left clavicular head. Appears resolved at this point. He had a very large mass that has completely resolved. It is no longer tender. 3. Known history of drug abuse. 4. Chronic tobacco abuse. CONSULTATIONS: Orthopedics. PROCEDURES: None. BRIEF HOSPITAL COURSE: The patient was admitted to the hospital. Placed on IV vancomycin as well as Zosyn. His 1st set of blood cultures returned as positive for Staph aureus, methicillin- resistant and therefore his Zosyn was stopped. He was continued on vancomycin until his culture was negative. After his culture was negative, he was continued on IV antibiotics for the next 14 days. At that point, the patient will be discharged home. TIME SPENT: 35 minutes was spent in discharge planning and instructions. cc: Kye Delcid MD
== END 2017-05-24 20:37 | disposition home or self-care (01) ==
LOC: P.ED 11:02 → P.MEDSURG 14:32 → SUATTDRO 14:32 → P.MEDSURG 05-12 20:30
PROVIDERS: ATTEND Family Medicine